=== PATIENT | male | born 1965 | race Caucasian/White ===

== ENCOUNTER 2021-01-31 10:07 | Observation (INO) | payer OTHER ==
[~2021-01-31] VITALS: Ht 180 cm; Wt 68.0 kg
[2021-01-31] MEDS ORDERED: NS IV 1000 ML 1,000 ML IV STA (10:32)
[2021-01-31] MEDS ORDERED: RT-ALBUTEROL/IPRATROPIUM 3 ML (DUONEB) VIAL INH STA (10:32)
[2021-01-31] MEDS ORDERED: methylPREDNISolone 125 MG (Solu-MEDROL) VIAL IVP STA (10:32)
[2021-01-31 10:38] LABS: HEMATOCRIT 44 % (40-54); HEMOGLOBIN 14.3 G/DL (13.3-17.7); MEAN CORPUSCULAR HEMOGLOBIN 29 PG (25-34); MEAN CORPUSCULAR VOLUME 88 FL (80-99); WHITE BLOOD COUNT 8.2 10^3/uL (4.3-11.0)
[2021-01-31 10:39] LABS: BASOPHILS # (AUTO) 0.1 10^3/uL (0.0-0.1); BASOPHILS % (AUTO) 1 % (0-10); EOSINOPHILS # (AUTO) 0.5 10^3/uL (0.0-0.3); EOSINOPHILS % (AUTO) 6 % (0-10); LYMPHOCYTES % (AUTO) 17 % (12-44); MEAN CORPUSCULAR HGB CONC 33 G/DL (32-36); MEAN PLATELET VOLUME 8.4 FL (7.4-10.4); MONOCYTES # (AUTO) 0.5 X 10^3 (0.0-1.0); MONOCYTES % (AUTO) 6 % (0-12); NEUTROPHILS # (AUTO) 5.8 X 10^3 (1.8-7.8); NEUTROPHILS % (AUTO) 70 % (42-75); PLATELET COUNT 299 10^3/uL (130-400)
--- NOTE | 2021-01-31 10:40 | ED Respiratory ---
General Chief Complaint: Respiratory Problems Stated Complaint: SOB Nursing Triage Note: Patient reports he has had COPD for 5 years, states he sees Tish Wheatley at the [facility] locally but has not been able to get appointment recently d/t COVID, weather, and/or transportation issues. He reports he became increasingly short of breath on Saturday, states he uses an albuterol inhaler but that it only helps his shortness of breath for 1-2 hours. He states his sister uses oxygen and he has been using her tanks at home. He reports severe activity intolerance d/t the shortness of breath, states he can barely make it to the bathroom in time. Source: patient History of Present Illness Date Seen by Provider: Jan 31, 2021 Time Seen by Provider: 10:09 Initial Comments 56-year-old male presenting with increased shortness of breath and coughing. He states that he has known COPD over the last 5 years. [facility]. He states it has been over a year that the [facility] has put him off for being seen from a COPD standpoint. He currently only uses albuterol inhaler for his COPD. His sister uses oxygen and he has been using some of her extra oxygen tanks. He felt like that was helping some with his breathing but over the weekend he felt like he was more short of breath than normal and the oxygen was not helping. He had some chills but does not feel like he was running high fevers or coughing up more sputum than normal. He still has a lot of color to his sputum but feels like it is from his smoking. He has not been able to smoke in the last week or 2 like usual because when he tries to breath in the smoke from the cigarette it makes him cough and gag. He has not been able to walk to the bathroom or around his house without getting winded and out of breath with minimal exertion in last few days. Allergies and Home Medications Allergies Coded Allergies: No Known Drug Allergies (Unverified , 01/31/21) Patient Home Medication List Home Medication List Reviewed: Yes Review of Systems Review of Systems Constitutional: chills; No diaphoresis, No fever; malaise EENTM: no symptoms reported Respiratory: see HPI, cough, dyspnea on exertion (worsening in last few days); No hemoptysis; short of breath; No stridor; wheezing Cardiovascular: chest pain (tightness with exertion and activitiy); No palpitations, No syncope Gastrointestinal: no symptoms reported Genitourinary: no symptoms reported Musculoskeletal: no symptoms reported Skin: No rash Psychiatric/Neurological: Denies Headache, Denies Numbness, Denies Paresthesia Hematologic/Lymphatic: No Symptoms Reported Immunological/Allergic: no symptoms reported Past Gfdogmd-Pwnxdg-Llpdos Hx Past Med/Social Hx: Reviewed Nursing Past Med/Soc Hx Patient Social History Alcohol Use: Denies Use Smoking Status: Current Everyday Smoker Type Used: Cigarettes 2nd Hand Smoke Exposure: No Recent Infectious Disease Expo: No Recent Hopitalizations: No Seasonal Allergies Seasonal Allergies: No Past Medical History Surgeries: Yes (web toes) Respiratory: Yes COPD Cardiac: No Neurological: No Genitourinary: No Gastrointestinal: No Musculoskeletal: No Endocrine: No HEENT: No Cancer: No Psychosocial: No Integumentary: No Blood Disorders: No Physical Exam Vital Signs - First Documented 01/31/21 10:19 Temp 36.7 Pulse 120 Resp 26 B/P (MAP) 135/93 (107) Pulse Ox 92 O2 Delivery Room Air Capillary Refill : Less Than 3 Seconds Height: '" Weight: lbs. oz. kg; 20.00 BMI Method: General Appearance: moderate distress (working hard to breath), thin HEENT: PERRL/EOMI, pharynx normal Neck: non-tender, full range of motion, supple, normal inspection Respiratory: chest non-tender, decreased breath sounds, wheezing Cardiovascular: normal peripheral pulses, no murmur, tachycardia Gastrointestinal: normal bowel sounds, non tender, soft, no pulsatile mass Extremities: normal range of motion, no pedal edema, normal capillary refill Neurologic/Psychiatric: layout man II-XII nml as tested, alert, oriented x 3 Skin: normal color, warm/dry Focused Exam Lactate Level 01/31/21 10:25: Lactic Acid Level 1.28 Lactic Acid Level Laboratory Tests Test 01/31/21 10:25 Lactic Acid Level 1.28 MMOL/L (0.50-2.00) Progress/Results/Core Measures Suspected Sepsis Recent Fever Within 48 Hours: No Infection Criteria Present: Suspected New Infection New/Unexplained Altered Menta: No Sepsis Screen: Possible Severe Sepsis Risk SIRS Temperature: Pulse: 120 Respiratory Rate: 26 Laboratory Tests 01/31/21 10:25: White Blood Count 8.2 Blood Pressure 135 /93 Mean: 107 01/31/21 10:25: Lactic Acid Level 1.28 Laboratory Tests 01/31/21 10:25: Creatinine 0.73, INR Comment 1.0, Platelet Count 299, Total Bilirubin 0.2 Results/Orders Lab Results Laboratory Tests Test 01/31/21 10:25 Range/Units White Blood Count 8.2 4.3-11.0 10^3/uL Red Blood Count 4.99 4.35-5.85 10^6/uL Hemoglobin 14.3 13.3-17.7 G/DL Hematocrit 44 40-54 % Mean Corpuscular Volume 88 80-99 FL Mean Corpuscular Hemoglobin 29 25-34 PG Mean Corpuscular Hemoglobin Concent 33 32-36 G/DL Red Cell Distribution Width 13.1 10.0-14.5 % Platelet Count 299 130-400 10^3/uL Mean Platelet Volume 8.4 7.4-10.4 FL Immature Granulocyte % (Auto) 0 % Neutrophils (%) (Auto) 70 42-75 % Lymphocytes (%) (Auto) 17 12-44 % Monocytes (%) (Auto) 6 0-12 % Eosinophils (%) (Auto) 6 0-10 % Basophils (%) (Auto) 1 0-10 % Neutrophils # (Auto) 5.8 1.8-7.8 X 10^3 Lymphocytes # (Auto) 4.4 H 1.0-4.0 X 10^3 Monocytes # (Auto) 0.5 0.0-1.0 X 10^3 Eosinophils # (Auto) 0.5 H 0.0-0.3 10^3/uL Basophils # (Auto) 0.1 0.0-0.1 10^3/uL Immature Granulocyte # (Auto) 0.0 0.0-0.1 10^3/uL Prothrombin Time 13.2 12.2-14.7 SEC INR Comment 1.0 0.8-1.4 Activated Partial Thromboplast Time 31 24-35 SEC Blood Gas Puncture Site RT BRACHIAL Blood Gas Patient Temperature 36.7 Arterial Blood pH 7.40 7.37-7.43 Arterial Blood Partial Pressure CO2 47 H 35-45 MMHG Arterial Blood Partial Pressure O2 58 L 79-93 MMHG Arterial Blood HCO3 29 H 23-27 MMOL/L Arterial Blood Total CO2 30.5 21.0-31.0 MMOL/L Arterial Blood Oxygen Saturation 90 L 94-100 % Arterial Blood Base Excess 3.6 H -2.5-2.5 MMOL/L Matthew Test NA Blood Gas Ventilator Setting NO Blood Gas Inspired Oxygen ROOM AIR Sodium Level 137 135-145 MMOL/L Potassium Level 4.4 3.6-5.0 MMOL/L Chloride Level 101 98-107 MMOL/L Carbon Dioxide Level 27 21-32 MMOL/L Anion Gap 9 5-14 MMOL/L Blood Urea Nitrogen 15 7-18 MG/DL Creatinine 0.73 0.60-1.30 MG/DL Estimat Glomerular Filtration Rate > 60 BUN/Creatinine Ratio 21 Glucose Level 123 H 70-105 MG/DL Lactic Acid Level 1.28 0.50-2.00 MMOL/L Calcium Level 9.4 8.5-10.1 MG/DL Corrected Calcium 9.0 8.5-10.1 MG/DL Total Bilirubin 0.2 0.1-1.0 MG/DL Aspartate Amino Transf (AST/SGOT) 15 5-34 U/L Alanine Aminotransferase (ALT/SGPT) 15 0-55 U/L Alkaline Phosphatase 101 40-136 U/L Troponin I < 0.30 <0.30 NG/ML C-Reactive Protein 0.60 H <0.50 MG/DL Total Protein 7.4 6.4-8.2 GM/DL Albumin 4.5 3.2-4.5 GM/DL My Orders Orders - SHIRA MONROE MD Monitor-Rhythm Ecg Trace Only (01/31/21 10:29) Cbc With Automated Diff (01/31/21 10:) Comprehensive Metabolic Panel (01/31/21 10:29) Crp Fs (01/31/21 10:) Troponin I Fs (01/31/21 10:) Protime With Inr (01/31/21 10:) Partial Thromboplastin Time (01/31/21 10:) Ekg Tracing (01/31/21 10:) Blood Culture (01/31/21 10:) Arterial Blood Gas (01/31/21 10:) Lactic Acid Analyzer (01/31/21 10:) Chest 1 View Ap/Pa Only (01/31/21 10:31) Sputum Culture (01/31/21 10:31) O2 (01/31/21 10:31) Methylprednisolone Sod Succ (Solu-Medrol (01/31/21 10:32) Albuterol/Ipra Inhalation Soln (Duoneb I (01/31/21 10:32) Ns Iv 1000 Ml (Sodium Chloride 0.9%) (01/31/21 10:32) Svn Small Volume Nebulizer (01/31/21 10:32) Vital Signs/I&O 01/31/21 10:19 Temp 36.7 Pulse 120 Resp 26 B/P (MAP) 135/93 (107) Pulse Ox 92 O2 Delivery Room Air Capillary Refill : Less Than 3 Seconds Blood Pressure Mean: 107 Progress Note #1: Progress Note Check basic labs and blood cultures wound was lactic acid. Since he feels like his breathing has been worse recently and he has not been here before will obtain a blood gas to evaluate if he is a CO2 retainer or how bad his COPD is in terms of exchanging oxygen and CO2. Placed on panel monitor to follow his heart rate and cardiac monitoring as he is tachycardic. Obtain electrocardiogram and chest x-ray. If he has any sputum that he expectorates here in the ED we will send that for culture. Try giving a DuoNeb breathing treatment for his shortness of breath. Give 125 mg of Solu-Medrol to help with his inflammation and breathing. Progress Note #2: Progress Note On recheck of the patient he was feeling like he was breathing a little better after treatment in the ED. His electrocardiogram did not demonstrate any ST elevation. His chest x-ray was showing COPD changes but no infiltrate for pneumonia. Blood count was stable with a white count of 8.2. His chemistry did not show any acute significant abnormality. He had a normal lactic acid of 1.28. His troponin was less than 0.3. His CRP was slightly elevated. ABG shows normal pH but slight elevation of pCO2, low pO2 ECG Initial ECG Impression Date: Jan 31, 2021 Initial ECG Impression Time: 10:31 Initial ECG Rate: 108 Initial ECG Rhythm: S.Tach Initial ECG Comparisson: No Previous ECG Available Comment Sinus tachycardia with a heart rate of 108 bpm. [place] interval [address] elevation. 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 QT interval 345 ms with a QTc interval of 463 ms. There is no prior tracing available for comparison. Diagnostic Imaging Diagonstic Imaging: Xray Plain Films/CT/US/NM/MRI: chest Comments [facility] [place], [place] NAME: MONET MAK [facility] REC#: [id number] PT STATUS: REG ER : 1965 PHYSICIAN: SHIRA MONROE MD ADMIT DATE: 01/31/21/ER FS Signed Date of Exam:01/31/21 CHEST 1 VIEW AP/PA ONLY INDICATION: short of breath, cough. TECHNIQUE: Single view chest 10:29 AM. CORRELATION STUDY: None FINDINGS: The heart size, mediastinal configuration and pulmonary vascularity are within normal limits. Lung culp are hyperinflated with what appears be rather significantly advanced emphysematous changes. No infiltrate. IMPRESSION: 1. Negative for acute abnormality of the chest. Advanced emphysematous changes of the lung parenchyma. Dictated by: Dictated on workstation # [id number] Dict: 01/31/21 1055 Trans: 01/31/21 1209 DO [id number] Interpreted by: MARA NUÑEZ DO Electronically signed by: MARA NUÑEZ DO 01/31/21 1209 Departure Communication (Admissions) Time/Spoke to Admitting Phy: 11:[address] Light for the hospitalist service. Since the patient does not show signs of is is limited with minimal exertion from his COPD well admit to the hospital for COPD exacerbation. Admit as observation patient and treat with steroids as well as respiratory protocol. He was given 125 mg of Solu-Medrol here in the ED. Continue with respiratory treatments in the hospital [facility], [place]. Obtain a rapid Covid on arrival to the hospital at [facility]. Impression Primary Impression: COPD with exacerbation Disposition: 30 STILL A PATIENT Condition: Stable Admissions Decision to Admit Reason: Admit from ER (General) Decision to Admit/Date: Jan 31, 2021 Time/Decision to Admit Time: 11:14 Departure-Patient Inst. Referrals: NO,LOCAL PHYSICIAN (PCP/Family) Primary Care Physician SHIRA MONROE MD Jan 31, 2021 10:40
[2021-01-31 10:41] LABS: ABG BASE EXCESS 3.6 MMOL/L (-2.5-2.5); ABG OXYGEN SATURATION 90 % (94-100); ABG PCO2 47 MMHG (35-45); ABG PO2 58 MMHG (79-93); ABG TCO2 30.5 MMOL/L (21.0-31.0); INSPIRED O2 ROOM AIR; PATIENT TEMP 36.7; VENTILATOR NO
--- NOTE | 2021-01-31 10:56 | Diagnostic Imaging Report ---
INDICATION: short of breath, cough. TECHNIQUE: Single view chest 10:29 AM. CORRELATION STUDY: None FINDINGS: The heart size, mediastinal configuration and pulmonary vascularity are within normal limits. Lung culp are hyperinflated with what appears be rather significantly advanced emphysematous changes. No infiltrate. IMPRESSION: 1. Negative for acute abnormality of the chest. Advanced emphysematous changes of the lung parenchyma. Dictated by: Dictated on workstation # [id number]
[2021-01-31 10:57] LABS: PROTHROMBIN TIME PATIENT 13.2 SEC (12.2-14.7)
[2021-01-31 11:04] LABS: SODIUM 137 MMOL/L (135-145)
[2021-01-31 11:05] LABS: ALANINE AMINOTRANSFERASE 15 U/L (0-55); ALBUMIN 4.5 GM/DL (3.2-4.5); ALKALINE PHOSPHATASE 101 U/L (40-136); BILIRUBIN,TOTAL 0.2 MG/DL (0.1-1.0); BUN/CREATININE RATIO 21; CALCIUM 9.4 MG/DL (8.5-10.1); CARBON DIOXIDE 27 MMOL/L (21-32); CHLORIDE 101 MMOL/L (98-107); CREATININE SERUM 0.73 MG/DL (0.60-1.30); GFR ESTIMATED > 60; GLUCOSE 123 MG/DL (70-105); POTASSIUM 4.4 MMOL/L (3.6-5.0); TOTAL PROTEIN 7.4 GM/DL (6.4-8.2)
[2021-01-31] MEDS ORDERED: CATHETER FLUSH 10 ML SYR IV PRN (14:00)
[2021-01-31] MEDS ORDERED: NS IV 1000 ML 1,000 ML IV SCH (14:00)
[2021-01-31 14:21] VITALS: BP 135/93
[2021-01-31] MEDS ORDERED: RT-ALBUTEROL/IPRATROPIUM 3 ML (DUONEB) VIAL INH PRN (14:45)
--- NOTE | 2021-01-31 15:11 | Short Stay Summary-Hospitalist ---
History of Present Illness HPI/Chief Complaint I DID NOT ACTUALLY SEE PATIENT, THIS IS FOR DOCUMENTATION PURPOSES ONLY Date Seen 01/31/21 Time Seen by a Provider: 14:05 (I DID NOT ACTUALLY SEE PATIENT, THIS IS FOR DOCUMENTATION PURPOSES ONLY) Attending Physician Adán Light MD PCP No,Local Physician Referring Physician Date of Admission Jan 31, 2021 at 13:22 Home Medications & Allergies Home Medications Reviewed patient Home Medication Reconciliation performed by pharmacy medication reconciliations signal technician and/or nursing. Patients Allergies have been reviewed. Allergies Allergies Coded Allergies No Known Drug Allergies (Unverified01/31/21) Past Twuusrp-Fskiek-Onyxxf Hx Past Med/Social Hx: Reviewed Nursing Past Med/Soc Hx (I DID NOT ACTUALLY SEE PATIENT, THIS IS FOR DOCUMENTATION PURPOSES ONLY) Patient Social History Alcohol Use: Denies Use Recreational Drug Use: No Smoking Status: Current Everyday Smoker Type Used: Cigarettes 2nd Hand Smoke Exposure: No Recent Foreign Travel: No Contact w/other who traveled: No Recent Hopitalizations: No Recent Infectious Disease Expo: No Seasonal Allergies Seasonal Allergies: No Past Medical History History of Blood Disorders: No Review of Systems Constitutional: see HPI (I DID NOT ACTUALLY SEE PATIENT, THIS IS FOR DOCUMENTATION PURPOSES ONLY) Physical Exam Physical Exam Vital Signs Vital Signs - First Documented 01/31/21 01/31/21 10:19 14:21 Temp 36.7 Pulse 120 Resp 26 B/P (MAP) 135/93 (107) Pulse Ox 92 O2 Delivery Room Air FiO2 21 Capillary Refill : Less Than 3 Seconds Height, Weight, BMI Height: '" Weight: lbs. oz. kg; 20.00 BMI Method: General Appearance: Other (I DID NOT ACTUALLY SEE PATIENT, THIS IS FOR DOCUMENTATION PURPOSES ONLY) Results Results/Procedures Labs Laboratory Tests 01/31/21 10:25 Patient resulted labs reviewed. Short Stay Diagnosis Discharge Diagnosis-Short Stay Admission Diagnosis I DID NOT ACTUALLY SEE PATIENT, THIS IS FOR DOCUMENTATION PURPOSES ONLY Final Discharge Diagnosis I DID NOT ACTUALLY SEE PATIENT, THIS IS FOR DOCUMENTATION PURPOSES ONLY Conclusion Plan I DID NOT ACTUALLY SEE PATIENT, THIS IS FOR DOCUMENTATION PURPOSES ONLY. PATIENT LEFT AMA PRIOR TO BEING SEEN. ADÁN LIGHT MD Jan 31, 2021 15:11
[2021-01-31] MEDS ORDERED: RT-ALBUTEROL/IPRATROPIUM 3 ML (DUONEB) VIAL INH SCH (18:00)
[2021-02-01 08:35] LABS: LYMPHOCYTES # (AUTO) 1.4 X 10^3 (1.0-4.0)
== END 2021-01-31 15:00 | disposition left against medical advice (07) ==
LOC: ER FS 10:13 → UNDOADMOB 13:22 → 4TH 13:22 → UNDODISOB 15:00
PROVIDERS: ADMIT Family Medicine; ATTEND Family Medicine
DX: J44.1 Chronic obstructive pulmonary disease with (acute) exacerbation (principal); I51.7 Cardiomegaly; F17.210 Nicotine dependence, cigarettes, uncomplicated; Z20.822 Contact with and (suspected) exposure to COVID-19; Z99.81 Dependence on supplemental oxygen; Z79.899 Other long term (current) drug therapy; Z98.890 Other specified postprocedural states
CPT/HCPCS: 36415; 71045; 80053; 82805; 83605; 84484; 85025; 85610; 85730; 86141; 87040; 87635; 93005; 93041; 96374; G0378